=== PATIENT | male | born 1960 | race American Indian/Alaskan Native ===

== ENCOUNTER 2019-06-02 14:13 | Outpatient (CLI) | payer BC ==
[2019-06-02] MEDS ORDERED: LISI-600 PO (17:10)
== END 2019-06-02 23:59 | disposition home or self-care (01) ==
LOC: CARD DIAG 14:13
PROVIDERS: ATTEND Family Medicine
DX: I08.0 Rheumatic disorders of both mitral and aortic valves (principal)
CPT/HCPCS: 93306

== ENCOUNTER 2019-06-02 15:20 | Inpatient (IN) | payer BC ==
[~2019-06-02] VITALS: Ht 172.7 cm; Wt 114.1 kg
[~2019-06-02 15:20] MED LIST: LIDOcaine 2% (20 mg/ml) 5ml cardiac syringe ONE; albumin (human) 25% 100 ML IV solution IV ONE; aminocaproic acid 250 MG/1 ML inj. ONE; calcium chloride 100 MG/1 ML inj IV ONE; heparin 10,000 units/1 ML INJ ONE; magnesium sulf 1 GM/2 ML ONE; methylPREDNISolone sod. succ. 500mg inj ONE; papaverine 30 mg/ml 2ml inj. ONE; phenylephrine 10mg/ml inj. ONE; potassium Cl 2 mEq/ml inj IV ONE; sodium bicarbonate (8.4%) 1 mEq/ml syringe ONE
[2019-06-02] MEDS ORDERED: aspirin 81mg tab.chew PO ONE (16:05)
[2019-06-02 16:16] LABS: BASOPHILS # (AUTO) 0.1 X10'3 (0-0.2); BASOPHILS % (AUTO) 0.7 % (0-1); EOSINOPHILS % (AUTO) 0.6 % (0-6); HEMATOCRIT 42.5 % (42.0-52.0); HEMOGLOBIN 14.1 g/dl (14.0-17.9); LYMPHOCYTES # (AUTO) 1.1 X10'3 (1.1-4.8); LYMPHOCYTES % (AUTO) 14.8 % (21-51); MEAN CORPUSCULAR HEMOGLOBIN 27.5 PG (27.0-31.0); MEAN CORPUSCULAR HGB CONC 33.2 g/dL (33.0-36.5); MEAN CORPUSCULAR VOLUME 82.7 FL (78-98); MEAN PLATELET VOLUME 8.2 FL (7.4-10.4); MONOCYTES # (AUTO) 0.2 X10'3 (0-0.9); MONOCYTES % (AUTO) 2.4 % (2-12); NEUTROPHILS # (AUTO) 6.1 X10'3 (1.8-7.7); NEUTROPHILS % (AUTO) 81.5 % (42-75); PLATELET COUNT 274 X10'3 (140-440); RED BLOOD COUNT 5.14 X10'6 (4.70-6.10); RED CELL DISTRIBUTION WIDTH 17.7 % (11.5-14.5); WHITE BLOOD COUNT 7.5 X10'3 (4.5-11.0)
[2019-06-02 16:29] LABS: ALANINE AMINOTRANSFERASE 57 U/L (12-78); ALBUMIN 3.9 G/DL (3.4-5.0); ALKALINE PHOSPHATASE 107 IU/L (46-116); ANION GAP 14 (8-16); ASPARTATE AMINO TRANSFERASE 24 U/L (10-37); BILIRUBIN,TOTAL 1.1 MG/DL (0.1-1.0); BLOOD UREA NITROGEN 23 MG/DL (7-18); BUN/CREATININE RATIO 20.2 (5.4-32.0); CALCIUM 9.5 MG/DL (8.5-10.1); CHLORIDE 106 MMOL/L (99-107); CREATININE 1.14 MG/DL (0.60-1.10); GLUCOSE 144 MG/DL (70-104); POTASSIUM 4.2 MMOL/L (3.5-5.1); SODIUM 143 MMOL/L (135-145); TOTAL CARBON DIOXIDE 22.8 MMOL/L (24-32); TOTAL PROTEIN 7.8 G/DL (6.4-8.2); eGFR 66 ML/MIN
[2019-06-02] MEDS ORDERED: LISI-600 PO (17:10)
[2019-06-02] MEDS ORDERED: iohexol 350MG/ML 100ml bottle IV ONE ×2 (17:18→17:48)
[2019-06-02] MEDS ORDERED: labetalol 20mg/4ml (5mg/ml) syringe IV ONE (17:30)
[2019-06-02] MEDS ORDERED: acetaminophen 325mg tablet PO PRN (18:30)
[2019-06-02] MEDS ORDERED: magnesium hydroxide 30ml (MOM) UD suspension PO PRN (18:30)
--- NOTE | 2019-06-02 19:45 | NUR ---
Patient in room . I have received report from Mirtha MANNING (ED) and had the opportunity to ask questions and assume patient care. Patient arrived to the telemetry floor by wheelchair with all his personal belongings on him. He is fully ambulatory and placed himself into bed. VS taken, telemetry placed. Pt. was oriented to room and call light. He is stable and comfortable. Will continue to monitor closely
[2019-06-02 22:00] VITALS: BP 143/67
[2019-06-02] MEDS: mag hydrox/Alum hydrox/simeth 30ml oral suspension PO PRN (22:41)
[2019-06-02] MEDS: carVEDilol 3.125mg tablet PO SCH (22:42)
[2019-06-02] MEDS: furosemide 20 MG/2 ML vial IV SCH (22:43)
[2019-06-03 02:00] VITALS: BP 142/76
[2019-06-03 05:36] LABS: BASOPHILS % (AUTO) 0.4 % (0-1); EOSINOPHILS % (AUTO) 0.3 % (0-6); HEMOGLOBIN 12.2 g/dl (14.0-17.9); LYMPHOCYTES # (AUTO) 0.8 X10'3 (1.1-4.8); LYMPHOCYTES % (AUTO) 13.7 % (21-51); MEAN CORPUSCULAR HEMOGLOBIN 27.3 PG (27.0-31.0); MEAN CORPUSCULAR HGB CONC 33.1 g/dL (33.0-36.5); MEAN CORPUSCULAR VOLUME 82.7 FL (78-98); MONOCYTES # (AUTO) 0.2 X10'3 (0-0.9); MONOCYTES % (AUTO) 4.2 % (2-12); NEUTROPHILS # (AUTO) 4.5 X10'3 (1.8-7.7); NEUTROPHILS % (AUTO) 81.4 % (42-75); PLATELET COUNT 217 X10'3 (140-440); RED BLOOD COUNT 4.47 X10'6 (4.70-6.10); WHITE BLOOD COUNT 5.6 X10'3 (4.5-11.0)
[2019-06-03 06:00] VITALS: BP 114/59
[2019-06-03 06:19] LABS: ALBUMIN 3.2 G/DL (3.4-5.0); ANION GAP 10 (8-16); BLOOD UREA NITROGEN 24 MG/DL (7-18); BUN/CREATININE RATIO 18.6 (5.4-32.0); CALCIUM 8.7 MG/DL (8.5-10.1); CHLORIDE 109 MMOL/L (99-107); CREATININE 1.29 MG/DL (0.60-1.10); GLUCOSE 138 MG/DL (70-104); POTASSIUM 4.8 MMOL/L (3.5-5.1); SODIUM 144 MMOL/L (135-145); TOTAL CARBON DIOXIDE 24.7 MMOL/L (24-32); eGFR 57 ML/MIN
--- NOTE | 2019-06-03 06:23 | NUR ---
Problems reprioritized. Patient report given, questions answered & plan of care reviewed with Nita MANNING.
--- NOTE | 2019-06-03 06:24 | NUR ---
Patient in room PCU 3023. I have received report from NIGEL Dawson and had the opportunity to ask questions and assume patient care.
[2019-06-03] MEDS: mag hydrox/Alum hydrox/simeth 30ml oral suspension PO PRN (07:20)
[2019-06-03] MEDS: carVEDilol 3.125mg tablet PO SCH ×2 (07:20→20:59)
[2019-06-03] MEDS: furosemide 20 MG/2 ML vial IV SCH ×2 (07:20→20:58)
[2019-06-03] MEDS: CefTRIAXone 2gm/D5W 50ml 50 ML IV SCH (10:52)
[2019-06-03 11:00] VITALS: BP 150/67
[2019-06-03] MEDS: VANCOmycin 1250MG/NS 250ml Bag 250 ML IV SCH ×2 (11:22→20:58)
[2019-06-03 15:00] VITALS: BP 142/64
--- NOTE | 2019-06-03 18:26 | NUR ---
Patient in room U 3023. Report given to NIGEL Martinez
--- NOTE | 2019-06-03 18:30 | NUR ---
Patient in room PCU 3023. I have received report from Nita MANNING and had the opportunity to ask questions and assume patient care.
[2019-06-03 19:00] VITALS: BP 141/60
[2019-06-03] MEDS: lactobacillus rhamnosus 10,000 MMU CELLS/CAPSULE PO SCH (20:58)
[2019-06-03 23:00] VITALS: BP 134/59
[2019-06-04] VITALS (7 sets, daily range): BP systolic 112–151; BP diastolic 44–83
--- NOTE | 2019-06-04 06:48 | NUR ---
Problems reprioritized. Patient report given, questions answered & plan of care reviewed with Hilaria MANNING and Cris [employer] Student.
--- NOTE | 2019-06-04 07:05 | NUR ---
Patient in room PCU 3023. I have received report from NIGEL LIN and had the opportunity to ask questions and assume patient care.
[2019-06-04] MEDS: carVEDilol 3.125mg tablet PO SCH ×2 (07:39→22:10)
[2019-06-04] MEDS: CefTRIAXone 2gm/D5W 50ml 50 ML IV SCH (07:39)
[2019-06-04] MEDS: lactobacillus rhamnosus 10,000 MMU CELLS/CAPSULE PO SCH ×2 (07:39→22:10)
[2019-06-04] MEDS: furosemide 20 MG/2 ML vial IV SCH (07:39)
[2019-06-04 08:13] LABS: ANION GAP 10 (8-16); BLOOD UREA NITROGEN 27 MG/DL (7-18); BUN/CREATININE RATIO 19.4 (5.4-32.0); CALCIUM 8.7 MG/DL (8.5-10.1); CHLORIDE 108 MMOL/L (99-107); CREATININE 1.39 MG/DL (0.60-1.10); GLUCOSE 149 MG/DL (70-104); POTASSIUM 4.5 MMOL/L (3.5-5.1); SODIUM 142 MMOL/L (135-145); TOTAL CARBON DIOXIDE 24.5 MMOL/L (24-32); eGFR 52 ML/MIN
[2019-06-04 08:15] LABS: BASOPHILS % (AUTO) 0.7 % (0-1); EOSINOPHILS # (AUTO) 0.1 X10'3 (0-0.9); EOSINOPHILS % (AUTO) 1.3 % (0-6); HEMATOCRIT 38.6 % (42.0-52.0); HEMOGLOBIN 12.9 g/dl (14.0-17.9); LYMPHOCYTES # (AUTO) 0.7 X10'3 (1.1-4.8); LYMPHOCYTES % (AUTO) 13.9 % (21-51); MEAN CORPUSCULAR HEMOGLOBIN 27.3 PG (27.0-31.0); MEAN CORPUSCULAR HGB CONC 33.4 g/dL (33.0-36.5); MEAN CORPUSCULAR VOLUME 81.7 FL (78-98); MEAN PLATELET VOLUME 8.4 FL (7.4-10.4); MONOCYTES # (AUTO) 0.2 X10'3 (0-0.9); MONOCYTES % (AUTO) 4.4 % (2-12); NEUTROPHILS % (AUTO) 79.7 % (42-75); PLATELET COUNT 186 X10'3 (140-440); RED BLOOD COUNT 4.72 X10'6 (4.70-6.10); RED CELL DISTRIBUTION WIDTH 17.2 % (11.5-14.5)
[2019-06-04] MEDS: VANCOmycin 1250MG/NS 250ml Bag 250 ML IV SCH ×2 (10:20→22:59)
[2019-06-04] MEDS ORDERED: aspirin 81mg tablet.DR PO ONE (13:25)
--- NOTE | 2019-06-04 18:00 | NUR ---
Patient in room PCU 3023. I have received report from NIGEL Manrique and had the opportunity to ask questions and assume patient care.
--- NOTE | 2019-06-04 18:30 | NUR ---
Problems reprioritized. Patient report given, questions answered & plan of care reviewed with NIGEL DE LUNA.
--- NOTE | 2019-06-04 18:42 | NUR ---
Problems reprioritized. Patient report given, questions answered & plan of care reviewed with NIGEL NEGRETE.
--- NOTE | 2019-06-04 18:45 | NUR ---
Student Medication Administration: For this medication-pass time frame, all medication were reviewed, dispensed, administered and documented per hospital policy by JANY.
--- NOTE | 2019-06-04 18:45 | NUR ---
Student documentation: I have reviewed and agree with all interventions, assessments performed and documented by JANY.
[2019-06-04] MEDS ORDERED: VANCOMYCIN LEVEL IV ONE (20:30)
[2019-06-05] VITALS (16 sets, daily range): BP systolic 106–136; BP diastolic 47–72
[2019-06-05 06:15] LABS: BASOPHILS % (AUTO) 0.8 % (0-1); EOSINOPHILS # (AUTO) 0.1 X10'3 (0-0.9); EOSINOPHILS % (AUTO) 1.4 % (0-6); HEMATOCRIT 39.2 % (42.0-52.0); HEMOGLOBIN 13.1 g/dl (14.0-17.9); MEAN CORPUSCULAR HEMOGLOBIN 27.7 PG (27.0-31.0); MEAN CORPUSCULAR HGB CONC 33.5 g/dL (33.0-36.5); MEAN CORPUSCULAR VOLUME 82.7 FL (78-98); MEAN PLATELET VOLUME 8.5 FL (7.4-10.4); MONOCYTES # (AUTO) 0.2 X10'3 (0-0.9); MONOCYTES % (AUTO) 4.1 % (2-12); NEUTROPHILS % (AUTO) 74.7 % (42-75); PLATELET COUNT 206 X10'3 (140-440); RED BLOOD COUNT 4.74 X10'6 (4.70-6.10); RED CELL DISTRIBUTION WIDTH 17.4 % (11.5-14.5); WHITE BLOOD COUNT 5.4 X10'3 (4.5-11.0)
[2019-06-05 06:34] LABS: ALBUMIN 3.1 G/DL (3.4-5.0); ANION GAP 8 (8-16); BLOOD UREA NITROGEN 31 MG/DL (7-18); BUN/CREATININE RATIO 24.8 (5.4-32.0); CALCIUM 8.3 MG/DL (8.5-10.1); CHLORIDE 107 MMOL/L (99-107); CREATININE 1.25 MG/DL (0.60-1.10); GLUCOSE 174 MG/DL (70-104); POTASSIUM 4.1 MMOL/L (3.5-5.1); SODIUM 142 MMOL/L (135-145); TOTAL CARBON DIOXIDE 26.9 MMOL/L (24-32); eGFR 59 ML/MIN
--- NOTE | 2019-06-05 06:49 | NUR ---
Problems reprioritized. Patient report given, questions answered & plan of care reviewed with NIGEL Veloz.
--- NOTE | 2019-06-05 06:49 | NUR ---
Patient in room PCU 3023. I have received report from Renay MANNING and had the opportunity to ask questions and assume patient care. Patient asleep in bed. No complaints at this time. Will continue to monitor.
[2019-06-05] MEDS: normal saline 1000ml 1,000 ML IV SCH ×2 (07:49→14:56)
[2019-06-05] MEDS: carVEDilol 3.125mg tablet PO SCH ×2 (07:49→20:27)
[2019-06-05] MEDS: CefTRIAXone 2gm/D5W 50ml 50 ML IV SCH (07:49)
[2019-06-05] MEDS: lactobacillus rhamnosus 10,000 MMU CELLS/CAPSULE PO SCH ×2 (07:49→20:27)
[2019-06-05] MEDS ORDERED: diphenhydrAMINE 25mg capsule PO ONE ×2 (08:00→10:10)
[2019-06-05] MEDS ORDERED: LORazepam 1 MG tablet PO ONE ×2 (08:00→10:10)
[2019-06-05] MEDS: VANCOmycin 1250MG/NS 250ml Bag 250 ML IV SCH ×2 (09:50→20:35)
[2019-06-05] MEDS ORDERED: midazolam 2 mg/2 ml injection ONE ×2 (11:52→12:44)
[2019-06-05] MEDS ORDERED: LIDOcaine 1% (10mg/ml)w/preservative injection 20ml MDV ONE (11:53)
[2019-06-05] MEDS ORDERED: iohexol 350 MG/ML 50ML vial IV ONE ×2 (11:53→12:43)
[2019-06-05] MEDS ORDERED: iohexol 350MG/ML 100ml bottle IV ONE (11:53)
[2019-06-05] MEDS ORDERED: fentaNYL/PF 50MCG/1 ML 2ML syringe ONE (11:53)
[2019-06-05 13:11] LABS: ISTAT HGB ART 12.2 g/dl (14.0-18.0); ISTAT Hct ART 36 %PCV (42-52); ISTAT O2 SATURATION ARTERIAL 97 % (95-98); ISTAT SOURCE ART
[2019-06-05 13:11] LABS: ISTAT Hct MIX 36 %PCV (42-52); ISTAT O2 SATURATION MIX VENOUS 49 % (60-80); ISTAT SOURCE MIX
[2019-06-05] MEDS ORDERED: proCHLORperazine 10 MG/2 ml inj IV PRN (13:55)
[2019-06-05] MEDS ORDERED: OXAZEpam 15mg capsule PO PRN (13:55)
[2019-06-05] MEDS ORDERED: nitroGLYCERIN 0.4mg SUBLingual tab SL PRN (13:55)
[2019-06-05] MEDS ORDERED: magnesium 2GM in 50ml NS 50 ML IV PRN (17:20)
[2019-06-05] MEDS ORDERED: MESSAGE TO NURSING PO ONE ×4 (17:20)
[2019-06-05] MEDS ORDERED: potassium Cl 20 mEq SR tablet PO PRN (17:20)
[2019-06-05] MEDS ORDERED: magnesium 4gm in 100ml NS 100 ML IV PRN (17:20)
[2019-06-05] MEDS ORDERED: insulin glargine (Lantus) pen - multi-dose SQ PRN (17:20)
[2019-06-05] MEDS ORDERED: dextrose 50%-water 50ml dispensing syringe IV PRN (17:20)
[2019-06-05] MEDS ORDERED: potassium Cl 20mEq/100mL bag 100 ML IV PRN (17:20)
[2019-06-05] MEDS: aspirin 81mg tablet.DR PO SCH (17:43)
[2019-06-05 18:19] LABS: PARTIAL THROMBOPLASTIN TIME 29 SECONDS (22-32)
--- NOTE | 2019-06-05 18:22 | NUR ---
Problems reprioritized. Patient report given, questions answered & plan of care reviewed with Renay MANNING.
--- NOTE | 2019-06-05 18:44 | NUR ---
Problems reprioritized. Patient report given, questions answered & plan of care reviewed with Renay MANNING. Patient stable at tranfer of care.
--- NOTE | 2019-06-05 18:44 | NUR ---
Patient in room PCU 3023. I have received report from NIGEL Veloz and had the opportunity to ask questions and assume patient care.
[2019-06-05] MEDS: mag hydrox/Alum hydrox/simeth 30ml oral suspension PO PRN (20:27)
[2019-06-05] MEDS: mupirocin 2% nasal ointment 1gm UD NS SCH (20:28)
[2019-06-06] VITALS (7 sets, daily range): BP systolic 118–133; BP diastolic 44–61
[2019-06-06] MEDS: normal saline 1000ml 1,000 ML IV SCH ×2 (01:55→10:10)
[2019-06-06 05:57] LABS: BASOPHILS % (AUTO) 0.6 % (0-1); EOSINOPHILS # (AUTO) 0.1 X10'3 (0-0.9); EOSINOPHILS % (AUTO) 0.9 % (0-6); HEMOGLOBIN 13.4 g/dl (14.0-17.9); LYMPHOCYTES # (AUTO) 1.4 X10'3 (1.1-4.8); LYMPHOCYTES % (AUTO) 22.4 % (21-51); MEAN CORPUSCULAR HEMOGLOBIN 27.3 PG (27.0-31.0); MEAN CORPUSCULAR HGB CONC 33.5 g/dL (33.0-36.5); MEAN CORPUSCULAR VOLUME 81.4 FL (78-98); MEAN PLATELET VOLUME 8.4 FL (7.4-10.4); MONOCYTES # (AUTO) 0.3 X10'3 (0-0.9); MONOCYTES % (AUTO) 4.6 % (2-12); NEUTROPHILS # (AUTO) 4.6 X10'3 (1.8-7.7); NEUTROPHILS % (AUTO) 71.5 % (42-75); PLATELET COUNT 216 X10'3 (140-440); RED BLOOD COUNT 4.91 X10'6 (4.70-6.10); RED CELL DISTRIBUTION WIDTH 17.8 % (11.5-14.5); WHITE BLOOD COUNT 6.4 X10'3 (4.5-11.0)
--- NOTE | 2019-06-06 06:05 | NUR ---
Patient in room MED 307. I have received report from NIGEL Parry and had the opportunity to ask questions and assume patient care.
[2019-06-06 06:15] LABS: ALBUMIN 3.1 G/DL (3.4-5.0); ANION GAP 9 (8-16); BLOOD UREA NITROGEN 31 MG/DL (7-18); BUN/CREATININE RATIO 23.1 (5.4-32.0); CALCIUM 8.1 MG/DL (8.5-10.1); CHLORIDE 108 MMOL/L (99-107); CREATININE 1.34 MG/DL (0.60-1.10); GLUCOSE 169 MG/DL (70-104); POTASSIUM 4.2 MMOL/L (3.5-5.1); SODIUM 140 MMOL/L (135-145); TOTAL CARBON DIOXIDE 22.7 MMOL/L (24-32); eGFR 54 ML/MIN
[2019-06-06] MEDS: mupirocin 2% nasal ointment 1gm UD NS SCH ×2 (08:00→19:52)
[2019-06-06] MEDS: CefTRIAXone 2gm/D5W 50ml 50 ML IV SCH (08:05)
[2019-06-06] MEDS: carVEDilol 3.125mg tablet PO SCH ×2 (08:06→19:52)
[2019-06-06] MEDS: lactobacillus rhamnosus 10,000 MMU CELLS/CAPSULE PO SCH ×2 (08:06→19:52)
[2019-06-06] MEDS: aspirin 81mg tablet.DR PO SCH (08:06)
[2019-06-06] MEDS ORDERED: ringers solution, lacted 1,000 ML IV ONE (09:14)
[2019-06-06] MEDS: VANCOmycin 1250MG/NS 250ml Bag 250 ML IV SCH ×2 (09:49→21:33)
[2019-06-06] MEDS: pantoprazole 40mg Tablet.DR PO SCH (09:49)
[2019-06-06] MEDS ORDERED: MESSAGE TO NURSING PO ONE (10:00)
[2019-06-06] MEDS: ondansetron/PF 4mg/2ml inj IV PRN ×2 (14:21→19:51)
[2019-06-06 14:55] LABS: ABG BASE EXCESS -7.4 mmol/L (-2.0-3.0); ABG OXYGEN SATURATION 97.3 % (95-98); ABG PCO2 (T) 23.9 mmHg (35.0-45.0); ABG PH (T) 7.417 (7.350-7.450); ABG PO2 (T) 97.9 mmHg (83-108); ALLEN'S TEST Positive; FCOHb 0.8 % (0.5-1.5); FMetHb 0.3 % (0.3-1.12); FO2Hb 96.2 % (94-100); RESPIRATORY RATE (OBSERVED) 18 b/min; TOTAL HEMOGLOBIN 14.5 G/dl (14.0-17.9)
--- NOTE | 2019-06-06 15:26 | NUR ---
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 HE IS HAVING A CABG TOMORROW AND MENTIONED A HOTEL> CANDIDO, SANTO JOHN [id number]"
--- NOTE | 2019-06-06 18:00 | NUR ---
Patient in room MED 307. I have received report from Gisel/Cristel MANNING's and had the opportunity to ask questions and assume patient care.
--- NOTE | 2019-06-06 18:36 | NUR ---
Problems reprioritized. Patient report given, questions answered & plan of care reviewed with NIGEL Lea.
[2019-06-07] VITALS (16 sets, daily range): BP systolic 98–135; BP diastolic 52–100
[2019-06-07 04:02] LABS: ALANINE AMINOTRANSFERASE 74 U/L (12-78); ALBUMIN 3.1 G/DL (3.4-5.0); ALKALINE PHOSPHATASE 77 IU/L (46-116); ANION GAP 12 (8-16); ASPARTATE AMINO TRANSFERASE 72 U/L (10-37); BLOOD UREA NITROGEN 37 MG/DL (7-18); BUN/CREATININE RATIO 25.2 (5.4-32.0); CALCIUM 8.5 MG/DL (8.5-10.1); CHLORIDE 106 MMOL/L (99-107); CREATININE 1.47 MG/DL (0.60-1.10); GLUCOSE 139 MG/DL (70-104); SODIUM 138 MMOL/L (135-145); TOTAL CARBON DIOXIDE 20.1 MMOL/L (24-32); TOTAL PROTEIN 6.1 G/DL (6.4-8.2); eGFR 49 ML/MIN
[2019-06-07 04:05] LABS: POTASSIUM 4.9 MMOL/L (3.5-5.1)
[2019-06-07 05:03] LABS: BASOPHILS % (AUTO) 0.4 % (0-1); EOSINOPHILS % (AUTO) 0.4 % (0-6); HEMATOCRIT 38.1 % (42.0-52.0); HEMOGLOBIN 12.7 g/dl (14.0-17.9); LYMPHOCYTES # (AUTO) 1.3 X10'3 (1.1-4.8); LYMPHOCYTES % (AUTO) 18.9 % (21-51); MEAN CORPUSCULAR HEMOGLOBIN 27.5 PG (27.0-31.0); MEAN CORPUSCULAR HGB CONC 33.3 g/dL (33.0-36.5); MEAN CORPUSCULAR VOLUME 82.4 FL (78-98); MEAN PLATELET VOLUME 8.5 FL (7.4-10.4); MONOCYTES # (AUTO) 0.2 X10'3 (0-0.9); MONOCYTES % (AUTO) 3.7 % (2-12); NEUTROPHILS # (AUTO) 5.1 X10'3 (1.8-7.7); NEUTROPHILS % (AUTO) 76.6 % (42-75); PLATELET COUNT 191 X10'3 (140-440); RED BLOOD COUNT 4.62 X10'6 (4.70-6.10); RED CELL DISTRIBUTION WIDTH 17.5 % (11.5-14.5); WHITE BLOOD COUNT 6.7 X10'3 (4.5-11.0)
[2019-06-07] MEDS ORDERED: ROPIVAcaine 0.5% (5mg/ml) 30ml vial ONE (05:08)
[2019-06-07] MEDS ORDERED: cefazolin/dext.iso 2gm/50ml 50 ML IV ONE (05:30)
[2019-06-07] MEDS ORDERED: vancomycin/NS 1 GM ADD-VANTAGE 250 ML IV ONE (05:30)
[2019-06-07] MEDS ORDERED: MALTODEXTRIN/FRUCTOSE 0.68 KCAL/ML LIQUID 296ML BOTTLE PO ONE (05:30)
[2019-06-07] MEDS ORDERED: gabapentin 400mg capsule PO ONE (05:30)
[2019-06-07 05:49] LABS: MAGNESIUM 2.2 MG/DL (1.5-2.4)
[2019-06-07] MEDS: mupirocin 2% nasal ointment 1gm UD NS SCH ×2 (05:53→19:59)
[2019-06-07] MEDS ORDERED: LORazepam 2 mg/ml vial IV ONE (06:00)
[2019-06-07] MEDS ORDERED: famotidine 20mg tablet PO ONE (06:00)
--- NOTE | 2019-06-07 06:43 | NUR ---
Problems reprioritized. Patient report given, questions answered & plan of care reviewed with Hannah/Leslye RN's.
[2019-06-07] MEDS: pantoprazole 40mg Tablet.DR PO SCH (07:30)
[2019-06-07] MEDS ORDERED: SUFENTANIL CITRATE 50 MCG/ML 2ml ampule IV ONE (07:42)
[2019-06-07] MEDS ORDERED: MIDAZolam 5mg/5ml vial ONE (07:42)
[2019-06-07] MEDS ORDERED: etomidate 2mg/ml inj. ONE (07:43)
[2019-06-07] MEDS ORDERED: pancuronium br 1mg/ml inj IV ONE (07:43)
[2019-06-07] MEDS: carVEDilol 3.125mg tablet PO SCH (07:44)
[2019-06-07] MEDS: aspirin 81mg tablet.DR PO SCH (08:00)
[2019-06-07] MEDS: lactobacillus rhamnosus 10,000 MMU CELLS/CAPSULE PO SCH (08:00)
[2019-06-07] MEDS ORDERED: aminocaproic acid 250 MG/1 ML inj. ONE (08:05)
[2019-06-07] MEDS ORDERED: calcium chloride 100 MG/1 ML inj IV ONE (08:05)
[2019-06-07] MEDS ORDERED: sevoflurane 250ml liquid IH ONE (08:05)
[2019-06-07] MEDS ORDERED: epiNEPHrine 0.1mg/ml 10ml syringe ONE (08:05)
[2019-06-07] MEDS ORDERED: DOPamine/D5W 400mg/250ml bag IV ONE (08:05)
[2019-06-07] MEDS ORDERED: protamine sulf. 10mg/ml inj. IV ONE (08:05)
[2019-06-07] MEDS ORDERED: nitroGLYCERIN in D5W 50mg/250ml (Tridil) infusion IV ONE (08:05)
[2019-06-07] MEDS: VANCOmycin 1250MG/NS 250ml Bag 250 ML IV SCH (08:06)
--- NOTE | 2019-06-07 08:06 | NUR ---
PRE OP COMPLETED, CONSENT SIGNED , AND ATIVAN GIVEN. PATIENT TRANSFERRED TO OR AT THIS TIME. Addendum: 06/07/19 at 0809 by Kathy Mota RN Amended: Links added.
[2019-06-07 08:26] LABS: ABG BASE EXCESS -8.1 mmol/L (-2.0-3.0); ABG HCO3 17.5 mmol/L (22.0-26.0); ABG OXYGEN SATURATION 99.8 % (95-98); ABG PCO2 36.2 mmHg (35.0-45.0); ABG PH 7.301 (7.350-7.450); ABG PO2 375.9 mmHg (60.0-100.0); CL (ABG) 102 mmol/L (99-107); FCOHb 0.8 % (0.5-1.5); FMetHb 0.4 % (0.3-1.12); FO2Hb 98.6 % (94-100); GLUCOSE (ABG) 251 mg/dl (70-104); IONIZED CA (ABG) 1.18 mmol/L (1.03-1.32); K (ABG) 4.9 mmol/L (3.3-5.1); NA (ABG) 133 mmol/L (135-145); TOTAL HEMOGLOBIN 13.3 G/dl (14.0-17.9)
[2019-06-07] MEDS ORDERED: albumin (Human) 5% 250ml 250 ML IV ONE ×4 (08:44→12:59)
[2019-06-07] MEDS ORDERED: phenylephrine 10mg/ml inj. ONE (08:51)
[2019-06-07] MEDS ORDERED: heparin 10,000 units/1 ML INJ IR ONE (09:23)
[2019-06-07] MEDS ORDERED: papaverine 30 mg/ml 2ml inj. IA ONE (09:24)
[2019-06-07 09:36] LABS: ABG BASE EXCESS VENOUS -4.7 mmol/L; ABG HCO3 VENOUS 22.9 mmol/L; ABG PCO2 VENOUS 53.7 mmHg; ABG PO2 VENOUS 27.8 mmHg; CL (ABG) 103 mmol/L (99-107); FCOHb VENOUS 1.2 %; FHHb VENOUS 64.1 %; FMetHb VENOUS 0.1 %; FO2Hb VENOUS 34.6 %; GLUCOSE (ABG) 235 mg/dl (70-104); IONIZED CA (ABG) 1.14 mmol/L (1.03-1.32); K (ABG) 4.9 mmol/L (3.3-5.1); NA (ABG) 133 mmol/L (135-145); TOTAL HEMOGLOBIN 12.2 G/dl (14.0-17.9)
[2019-06-07 10:15] LABS: ABG BASE EXCESS -5.7 mmol/L (-2.0-3.0); ABG HCO3 20.1 mmol/L (22.0-26.0); ABG OXYGEN SATURATION 99.7 % (95-98); ABG PCO2 40.7 mmHg (35.0-45.0); ABG PH 7.311 (7.350-7.450); ABG PO2 404.2 mmHg (60.0-100.0); CL (ABG) 103 mmol/L (99-107); FCOHb 0.6 % (0.5-1.5); FMetHb 0.5 % (0.3-1.12); FO2Hb 98.6 % (94-100); GLUCOSE (ABG) 189 mg/dl (70-104); IONIZED CA (ABG) 1.07 mmol/L (1.03-1.32); K (ABG) 4.8 mmol/L (3.3-5.1); NA (ABG) 132 mmol/L (135-145); TOTAL HEMOGLOBIN 9.4 G/dl (14.0-17.9)
[2019-06-07 10:20] LABS: ABG BASE EXCESS VENOUS -6.7 mmol/L; ABG HCO3 VENOUS 19.8 mmol/L; ABG PCO2 VENOUS 43.8 mmHg; ABG PO2 VENOUS 62.8 mmHg; CL (ABG) 102 mmol/L (99-107); FCOHb VENOUS 1.1 %; FHHb VENOUS 13.9 %; FMetHb VENOUS 0.6 %; FO2Hb VENOUS 84.4 %; GLUCOSE (ABG) 182 mg/dl (70-104); IONIZED CA (ABG) 1.08 mmol/L (1.03-1.32); K (ABG) 4.7 mmol/L (3.3-5.1); NA (ABG) 133 mmol/L (135-145); TOTAL HEMOGLOBIN 9.3 G/dl (14.0-17.9)
[2019-06-07] MEDS ORDERED: ringers solution, lacted 1,000 ML IV ONE (10:35)
[2019-06-07 10:41] LABS: ABG HCO3 22.2 mmol/L (22.0-26.0); ABG OXYGEN SATURATION 99.6 % (95-98); ABG PCO2 44.9 mmHg (35.0-45.0); ABG PH 7.311 (7.350-7.450); ABG PO2 351.5 mmHg (60.0-100.0); CL (ABG) 102 mmol/L (99-107); FCOHb 0.5 % (0.5-1.5); FMetHb 0.3 % (0.3-1.12); FO2Hb 98.8 % (94-100); GLUCOSE (ABG) 176 mg/dl (70-104); IONIZED CA (ABG) 1.08 mmol/L (1.03-1.32); K (ABG) 4.6 mmol/L (3.3-5.1); NA (ABG) 135 mmol/L (135-145); TOTAL HEMOGLOBIN 10.1 G/dl (14.0-17.9)
[2019-06-07 11:00] LABS: ABG BASE EXCESS -0.8 mmol/L (-2.0-3.0); ABG HCO3 23.7 mmol/L (22.0-26.0); ABG OXYGEN SATURATION 99.5 % (95-98); ABG PCO2 38.4 mmHg (35.0-45.0); ABG PH 7.408 (7.350-7.450); ABG PO2 330.7 mmHg (60.0-100.0); CL (ABG) 100 mmol/L (99-107); FCOHb 0.8 % (0.5-1.5); FMetHb 0.4 % (0.3-1.12); FO2Hb 98.3 % (94-100); GLUCOSE (ABG) 155 mg/dl (70-104); IONIZED CA (ABG) 1.22 mmol/L (1.03-1.32); K (ABG) 4.7 mmol/L (3.3-5.1); NA (ABG) 134 mmol/L (135-145); TOTAL HEMOGLOBIN 10.4 G/dl (14.0-17.9)
[2019-06-07] MEDS ORDERED: acetaminophen 1,000mg/100ml IV 100 ML IV ONE (11:03)
[2019-06-07 11:40] LABS: ABG BASE EXCESS -2.7 mmol/L (-2.0-3.0); ABG OXYGEN SATURATION 99.1 % (95-98); ABG PCO2 32.6 mmHg (35.0-45.0); ABG PH 7.427 (7.350-7.450); ABG PO2 260.2 mmHg (60.0-100.0); CL (ABG) 102 mmol/L (99-107); FCOHb 0.2 % (0.5-1.5); FMetHb 0.7 % (0.3-1.12); FO2Hb 98.2 % (94-100); GLUCOSE (ABG) 125 mg/dl (70-104); IONIZED CA (ABG) 1.18 mmol/L (1.03-1.32); K (ABG) 4.9 mmol/L (3.3-5.1); NA (ABG) 135 mmol/L (135-145); TOTAL HEMOGLOBIN 10.6 G/dl (14.0-17.9)
[2019-06-07 12:15] LABS: ABG BASE EXCESS VENOUS -3.9 mmol/L; ABG PCO2 VENOUS 43.4 mmHg; ABG PO2 VENOUS 41.2 mmHg; CL (ABG) 103 mmol/L (99-107); FHHb VENOUS 32.4 %; FMetHb VENOUS 0.9 %; FO2Hb VENOUS 65.7 %; GLUCOSE (ABG) 104 mg/dl (70-104); K (ABG) 4.4 mmol/L (3.3-5.1); NA (ABG) 136 mmol/L (135-145); TOTAL HEMOGLOBIN 10.5 G/dl (14.0-17.9)
--- NOTE | 2019-06-07 12:48 | NUR ---
Initial: Pt admit w/ SOB found to have severe aortic regurgitation per MD note. NPO to OR today for aortic valve replacement. PO 75-100% meals on admit prior to yesterday 06/06 w/ new abdominal pain/nausea onset. LBM 06/06. Will continue to monitor for high protein needs post-op. Rec: 1. continue heart healthy diet 2. high protein ed s/p AVR 3. wt per rx Addendum: 06/07/19 at [address] Amended: Links added.
--- NOTE | 2019-06-07 12:55 | NUR ---
Received to room 2014, accompanied by MDs and surgical crew. Placed on ventilator, to monitoring and evaluation advisor, arterial line and PA line pressure monitored. Chest tubes to suction at 20 cm. Merida cath to gravity drainage. Dressings are dry and intact. See assessment record. All vasoactive drugs are infusing via central line.
[2019-06-07] MEDS ORDERED: niCARDipine-NS 40mg/200ml IVPB 200 ML IV PRN (12:58)
[2019-06-07] MEDS ORDERED: nitroGLYCERIN-Tridil 50MG/D5W 250 ML IV PRN (12:58)
[2019-06-07] MEDS ORDERED: DOPamine 400mg/D5W 250ml 250 ML IV PRN (12:58)
[2019-06-07] MEDS ORDERED: sodium chloride 0.45% 1,000 ML IV SCH (12:58)
[2019-06-07] MEDS ORDERED: potassium Cl 20 mEq SR tablet PO PRN (13:00)
[2019-06-07] MEDS ORDERED: HYDROcodone/acetaminophen 10/325mg tab PO PRN ×2 (13:00)
[2019-06-07] MEDS ORDERED: magnesium 4gm in 100ml NS 100 ML IV PRN (13:00)
[2019-06-07] MEDS ORDERED: acetaminophen 325mg tablet PO PRN (13:00)
[2019-06-07] MEDS ORDERED: dextrose 50%-water 50ml dispensing syringe IV PRN (13:00)
[2019-06-07] MEDS ORDERED: sodium phosphate inj. 30 MMOL in dextrose 5%-water 250 ML IV PRN (13:00)
[2019-06-07] MEDS ORDERED: pantoprazole 40 MG vial IV ONE (13:00)
[2019-06-07] MEDS ORDERED: magnesium 2GM in 50ml NS 50 ML IV PRN (13:00)
[2019-06-07] MEDS ORDERED: metoclopramide 5 mg/ml inj IV PRN (13:00)
[2019-06-07] MEDS ORDERED: normal saline 250ml IV soln 250 ML IV PRN (13:00)
[2019-06-07] MEDS ORDERED: Neutra Phos packet PO PRN (13:00)
[2019-06-07] MEDS ORDERED: sodium phosphate inj. 15 MMOL in dextrose 5%-water 150 ML IV PRN (13:00)
[2019-06-07] MEDS ORDERED: insulin regular, human inj. 100 UNITS in normal saline 100ml IV soln 100 ML IV SCH ×2 (13:00)
[2019-06-07] MEDS ORDERED: magnesium hydroxide 30ml (MOM) UD suspension PO PRN (13:00)
[2019-06-07] MEDS: insulin Lispro (HumaLOG) vial - multi-dose SQ SCH ×2 (13:00→16:44)
[2019-06-07 13:25] LABS: ABG BASE EXCESS -5.3 mmol/L (-2.0-3.0); ABG HCO3 19.9 mmol/L (22.0-26.0); ABG OXYGEN SATURATION 94.7 % (95-98); ABG PCO2 (T) 37.2 mmHg (35.0-45.0); ABG PH (T) 7.345 (7.350-7.450); ABG PO2 (T) 79.8 mmHg (83-108); FCOHb 1.2 % (0.5-1.5); FMetHb 0.3 % (0.3-1.12); FO2Hb 93.3 % (94-100); MINUTE VOLUME 8 L/min; PATIENT TEMPERATURE 36.6; PEEP 5 cm H2O; RESPIRATORY RATE 12 b/min; RESPIRATORY RATE (OBSERVED) 12 b/min; TIDAL VOLUME 700 mL; TOTAL HEMOGLOBIN 12.8 G/dl (14.0-17.9)
[2019-06-07 13:33] LABS: BASOPHILS # (AUTO) 0.1 X10'3 (0-0.2); BASOPHILS % (AUTO) 0.4 % (0-1); EOSINOPHILS % (AUTO) 0.2 % (0-6); HEMATOCRIT 35.6 % (42.0-52.0); HEMOGLOBIN 11.7 g/dl (14.0-17.9); LYMPHOCYTES # (AUTO) 0.9 X10'3 (1.1-4.8); LYMPHOCYTES % (AUTO) 5.7 % (21-51); MEAN CORPUSCULAR HEMOGLOBIN 27.2 PG (27.0-31.0); MEAN CORPUSCULAR HGB CONC 32.8 g/dL (33.0-36.5); MEAN CORPUSCULAR VOLUME 82.8 FL (78-98); MEAN PLATELET VOLUME 8.3 FL (7.4-10.4); MONOCYTES # (AUTO) 0.6 X10'3 (0-0.9); MONOCYTES % (AUTO) 3.8 % (2-12); NEUTROPHILS # (AUTO) 13.7 X10'3 (1.8-7.7); NEUTROPHILS % (AUTO) 89.9 % (42-75); PLATELET COUNT 163 X10'3 (140-440); RED CELL DISTRIBUTION WIDTH 17.4 % (11.5-14.5); WHITE BLOOD COUNT 15.3 X10'3 (4.5-11.0)
[2019-06-07 13:43] LABS: PARTIAL THROMBOPLASTIN TIME 34 SECONDS (22-32)
[2019-06-07 13:47] LABS: ALANINE AMINOTRANSFERASE 54 U/L (12-78); ALBUMIN 3.1 G/DL (3.4-5.0); ALBUMIN/GLOBULIN RATIO 1.4 (1.1-1.5); ALKALINE PHOSPHATASE 56 IU/L (46-116); ANION GAP 9 (8-16); ASPARTATE AMINO TRANSFERASE 61 U/L (10-37); BILIRUBIN,TOTAL 1.2 MG/DL (0.1-1.0); BLOOD UREA NITROGEN 36 MG/DL (7-18); BUN/CREATININE RATIO 22.4 (5.4-32.0); CALCIUM 8.1 MG/DL (8.5-10.1); CHLORIDE 110 MMOL/L (99-107); CREATININE 1.61 MG/DL (0.60-1.10); GLUCOSE 92 MG/DL (70-104); MAGNESIUM 2.5 MG/DL (1.5-2.4); PHOSPHORUS 2.9 MG/DL (2.3-4.5); POTASSIUM 4.2 MMOL/L (3.5-5.1); SODIUM 143 MMOL/L (135-145); TOTAL CARBON DIOXIDE 23.7 MMOL/L (24-32); TOTAL PROTEIN 5.3 G/DL (6.4-8.2); eGFR 44 ML/MIN
[2019-06-07] MEDS: gabapentin 300mg capsule PO SCH ×2 (14:43→19:59)
[2019-06-07] MEDS: albumin (Human) 5% 250ml 250 ML IV PRN ×2 (14:44→17:17)
[2019-06-07 14:51] LABS: ACTIVATED CLOTTING TIME 127 SEC (101-148)
[2019-06-07 14:51] LABS: ACT @ 1.70 U 350 SEC (193-297); ACT @ 2.84 U 511 SEC (260-420); BASELINE ACT 155 SEC (101-148); PATIENT WEIGHT 93.0k KG
[2019-06-07] MEDS: insulin regular, human 100 UNIT in normal saline 100ml IV soln 100 ML IV SCH ×2 (16:08)
[2019-06-07] MEDS: ceFAZolin 1GM/D5W- ADD-VANTAGE 50 ML IV SCH ×2 (16:23→23:33)
[2019-06-07] MEDS: potassium Cl 20mEq/100mL bag 100 ML IV PRN ×2 (16:23→18:07)
[2019-06-07] MEDS ORDERED: epiNEPHrine inj 5 MG, calcium chloride inj. 1,000 MG in normal saline 250ml IV soln 235 ML IV PRN (17:45)
--- NOTE | 2019-06-07 18:29 | NUR ---
Problems reprioritized. Patient report given, questions answered & plan of care reviewed with oncoming shift.
--- NOTE | 2019-06-07 18:31 | NUR ---
1830..Patient in room CICU 2013. I have received report from Shantell MANNING and had the opportunity to ask questions and assume patient care.
[2019-06-07 19:32] LABS: BASOPHILS % (AUTO) 0.2 % (0-1); EOSINOPHILS % (AUTO) 0 % (0-6); HEMATOCRIT 32.5 % (42.0-52.0); HEMOGLOBIN 10.9 g/dl (14.0-17.9); LYMPHOCYTES # (AUTO) 0.3 X10'3 (1.1-4.8); LYMPHOCYTES % (AUTO) 4.2 % (21-51); MEAN CORPUSCULAR HEMOGLOBIN 27.6 PG (27.0-31.0); MEAN CORPUSCULAR HGB CONC 33.4 g/dL (33.0-36.5); MEAN CORPUSCULAR VOLUME 82.5 FL (78-98); MEAN PLATELET VOLUME 8.2 FL (7.4-10.4); MONOCYTES # (AUTO) 0.1 X10'3 (0-0.9); MONOCYTES % (AUTO) 1.9 % (2-12); NEUTROPHILS # (AUTO) 6.7 X10'3 (1.8-7.7); NEUTROPHILS % (AUTO) 93.7 % (42-75); PLATELET COUNT 97 X10'3 (140-440); RED BLOOD COUNT 3.93 X10'6 (4.70-6.10); RED CELL DISTRIBUTION WIDTH 17.3 % (11.5-14.5); WHITE BLOOD COUNT 7.2 X10'3 (4.5-11.0)
[2019-06-07 19:39] LABS: ALBUMIN 3.1 G/DL (3.4-5.0); ANION GAP 8 (8-16); BLOOD UREA NITROGEN 34 MG/DL (7-18); BUN/CREATININE RATIO 23.9 (5.4-32.0); CALCIUM 8.4 MG/DL (8.5-10.1); CHLORIDE 109 MMOL/L (99-107); CREATININE 1.42 MG/DL (0.60-1.10); GLUCOSE 170 MG/DL (70-104); MAGNESIUM 2.2 MG/DL (1.5-2.4); PHOSPHORUS 3.4 MG/DL (2.3-4.5); POTASSIUM 5.3 MMOL/L (3.5-5.1); SODIUM 140 MMOL/L (135-145); TOTAL CARBON DIOXIDE 23.1 MMOL/L (24-32); eGFR 51 ML/MIN
[2019-06-07] MEDS: vancomycin/NS 1 GM ADD-VANTAGE 250 ML IV SCH (19:58)
[2019-06-07] MEDS: morphine 4 MG/ML inj SYRINge IV PRN (19:59)
[2019-06-07] MEDS: docusate sod 100mg capsule PO SCH (19:59)
--- NOTE | 2019-06-07 21:51 | NUR ---
1999..Assessment as noted, wakes easily, moves all extremities, medicated for complaints of pain with morphine with good effect. Will start weaning vent as tolerated.
--- NOTE | 2019-06-07 22:23 | NUR ---
2200..Weaning vent as tolerated, no other changes noted.
--- NOTE | 2019-06-07 23:08 | NUR ---
2300..Continuing to wean vent, no other changes noted.
--- NOTE | 2019-06-07 23:37 | NUR ---
2300..Placed on spontaneous, seems to be tolerating well.
[2019-06-08] VITALS (26 sets, daily range): BP systolic 103–145; BP diastolic 3–90
[2019-06-08 00:26] LABS: ABG BASE EXCESS -2.4 mmol/L (-2.0-3.0); ABG HCO3 21.7 mmol/L (22.0-26.0); ABG OXYGEN SATURATION 94.4 % (95-98); ABG PCO2 (T) 34.9 mmHg (35.0-45.0); ABG PO2 (T) 73.4 mmHg (83-108); FCOHb 0.2 % (0.5-1.5); FMetHb 0.4 % (0.3-1.12); FO2Hb 93.8 % (94-100); MINUTE VOLUME 8 L/min; PATIENT TEMPERATURE 36.7; PEEP 5 cm H2O; TOTAL HEMOGLOBIN 11.9 G/dl (14.0-17.9)
--- NOTE | 2019-06-08 00:31 | NUR ---
0030..Passed weaning parameters, extubated to nasal cannula 4l, no wheezing or stridor. Tolerated well.
[2019-06-08] MEDS: morphine 4 MG/ML inj SYRINge IV PRN ×6 (00:55→22:27)
[2019-06-08 03:17] LABS: BASOPHILS % (AUTO) 0.1 % (0-1); EOSINOPHILS % (AUTO) 0 % (0-6); HEMATOCRIT 32.7 % (42.0-52.0); LYMPHOCYTES # (AUTO) 0.3 X10'3 (1.1-4.8); LYMPHOCYTES % (AUTO) 3.5 % (21-51); MEAN CORPUSCULAR HEMOGLOBIN 27.7 PG (27.0-31.0); MEAN CORPUSCULAR HGB CONC 33.5 g/dL (33.0-36.5); MEAN CORPUSCULAR VOLUME 82.6 FL (78-98); MEAN PLATELET VOLUME 8.4 FL (7.4-10.4); MONOCYTES # (AUTO) 0.2 X10'3 (0-0.9); MONOCYTES % (AUTO) 2.4 % (2-12); NEUTROPHILS # (AUTO) 8.3 X10'3 (1.8-7.7); PLATELET COUNT 118 X10'3 (140-440); RED BLOOD COUNT 3.96 X10'6 (4.70-6.10); RED CELL DISTRIBUTION WIDTH 17.2 % (11.5-14.5); WHITE BLOOD COUNT 8.8 X10'3 (4.5-11.0)
[2019-06-08 03:21] LABS: PARTIAL THROMBOPLASTIN TIME 32 SECONDS (22-32)
[2019-06-08 03:56] LABS: ALANINE AMINOTRANSFERASE 61 U/L (12-78); ALBUMIN 3.1 G/DL (3.4-5.0); ALBUMIN/GLOBULIN RATIO 1.3 (1.1-1.5); ALKALINE PHOSPHATASE 55 IU/L (46-116); ANION GAP 9 (8-16); ASPARTATE AMINO TRANSFERASE 59 U/L (10-37); BLOOD UREA NITROGEN 31 MG/DL (7-18); BUN/CREATININE RATIO 25.8 (5.4-32.0); CHLORIDE 111 MMOL/L (99-107); GLUCOSE 119 MG/DL (70-104); MAGNESIUM 2.1 MG/DL (1.5-2.4); PHOSPHORUS 4.3 MG/DL (2.3-4.5); POTASSIUM 4.7 MMOL/L (3.5-5.1); SODIUM 144 MMOL/L (135-145); TOTAL CARBON DIOXIDE 23.6 MMOL/L (24-32); TOTAL PROTEIN 5.5 G/DL (6.4-8.2); eGFR 62 ML/MIN
--- NOTE | 2019-06-08 05:48 | NUR ---
0530..Complained of incisional pain 7\10, medicated with morphine, as per md orders, with good effect, no other changes noted.
--- NOTE | 2019-06-08 06:19 | NUR ---
0620..Problems reprioritized. Patient report given, questions answered & plan of care reviewed with Kevin MANNING.
--- NOTE | 2019-06-08 06:22 | NUR ---
Patient in room CICU 2013. I have received report from Josselyn MANNING and had the opportunity to ask questions and assume patient care.
[2019-06-08] MEDS: vancomycin/NS 1 GM ADD-VANTAGE 250 ML IV SCH ×2 (07:49→20:54)
[2019-06-08] MEDS: ceFAZolin 1GM/D5W- ADD-VANTAGE 50 ML IV SCH ×2 (07:49→16:04)
[2019-06-08] MEDS: atorvastatin 10mg tablet PO SCH (07:50)
[2019-06-08] MEDS: docusate sod 100mg capsule PO SCH ×2 (07:50→20:55)
[2019-06-08] MEDS: metoprolol tartrate 25mg tablet PO SCH ×2 (07:50→20:55)
[2019-06-08] MEDS: mupirocin 2% nasal ointment 1gm UD NS SCH ×2 (07:50→20:55)
[2019-06-08] MEDS: gabapentin 300mg capsule PO SCH ×3 (07:50→20:55)
[2019-06-08] MEDS ORDERED: aspirin 325mg tablet, delayed-release (Ecotrin) PO SCH (08:00)
[2019-06-08] MEDS ORDERED: metoprolol tartrate 12.5mg (1/2 tablet) PO SCH (08:00)
[2019-06-08] MEDS: insulin Lispro (HumaLOG) vial - multi-dose SQ SCH ×5 (08:38→22:13)
[2019-06-08] MEDS: insulin regular, human 100 UNIT in normal saline 100ml IV soln 100 ML IV SCH ×2 (14:50)
--- NOTE | 2019-06-08 15:16 | NUR ---
F/u: Pt s/p AVR and seen by RD for written/verbal high protein ed w/ RD contact information provided. Addendum: 06/08/19 at [address] Amended: Links added. Addendum: 06/08/19 at [address] F/u: Pt s/p AVR and seen by RD for written/verbal high protein ed w/ RD contact information provided. Pt agrees to double eggs at breakfast and double veggies w/ meals; dietary notified.
--- NOTE | 2019-06-08 15:23 | NUR ---
PA line d/c'd at 1435, pressure held for 15 min. Minimal oozing noted at site, some ooze noted on dressing 10 minutes after dressing was put in place. After 10 more minutes no further oozing observed. Right A Line d/c'd at 1455, pressure held for 10 minutes and coban applied to site. After 15 minutes no oozing noted at site, will continue to monitor. Pulses and cap refill good on both right and left sides.
[2019-06-08] MEDS ORDERED: dextrose ORAL solution 15 GM/59 ML bottle PO PRN ×2 (15:25)
[2019-06-08] MEDS ORDERED: glucagon, human recombinant 1mg kit SUBCUT PRN (15:25)
[2019-06-08] MEDS ORDERED: dextrose 50%-water 50ml dispensing syringe IV PRN ×2 (15:25)
[2019-06-08 15:28] LABS: PARTIAL THROMBOPLASTIN TIME 29 SECONDS (22-32)
--- NOTE | 2019-06-08 16:14 | NUR ---
New At[facility] placed
[2019-06-08] MEDS: lisinopril 5mg tablet PO SCH (20:55)
--- NOTE | 2019-06-08 21:10 | NUR ---
RN Note -Pt refused bath Pt stated that he doesn't want anything to go wrong tonight, he just wants to get some sleep. Educated pt on importance of bath and that bed bath would be quick and easy and not like to cause any complications. Pt still refused.
[2019-06-08] MEDS: insulin glargine (Lantus) pen - multi-dose SQ SCH (22:10)
[2019-06-09] VITALS (14 sets, daily range): BP systolic 108–127; BP diastolic 63–98
[2019-06-09] MEDS: ceFAZolin 1GM/D5W- ADD-VANTAGE 50 ML IV SCH (00:55)
[2019-06-09] MEDS: insulin Lispro (HumaLOG) vial - multi-dose SQ SCH ×3 (02:33→21:26)
[2019-06-09] MEDS: morphine 4 MG/ML inj SYRINge IV PRN (02:40)
[2019-06-09 03:48] LABS: BASOPHILS % (AUTO) 0.1 % (0-1); EOSINOPHILS % (AUTO) 0 % (0-6); HEMATOCRIT 24.9 % (42.0-52.0); HEMOGLOBIN 8.2 g/dl (14.0-17.9); LYMPHOCYTES # (AUTO) 0.4 X10'3 (1.1-4.8); LYMPHOCYTES % (AUTO) 3.4 % (21-51); MEAN CORPUSCULAR HEMOGLOBIN 27.3 PG (27.0-31.0); MEAN CORPUSCULAR HGB CONC 32.8 g/dL (33.0-36.5); MEAN CORPUSCULAR VOLUME 83.2 FL (78-98); MEAN PLATELET VOLUME 8.6 FL (7.4-10.4); MONOCYTES # (AUTO) 0.5 X10'3 (0-0.9); MONOCYTES % (AUTO) 4.6 % (2-12); NEUTROPHILS # (AUTO) 10.4 X10'3 (1.8-7.7); NEUTROPHILS % (AUTO) 91.9 % (42-75); PLATELET COUNT 146 X10'3 (140-440); RED CELL DISTRIBUTION WIDTH 17.2 % (11.5-14.5); WHITE BLOOD COUNT 11.4 X10'3 (4.5-11.0)
[2019-06-09 04:02] LABS: ALBUMIN 2.8 G/DL (3.4-5.0); ANION GAP 7 (8-16); BLOOD UREA NITROGEN 37 MG/DL (7-18); BUN/CREATININE RATIO 25.7 (5.4-32.0); CALCIUM 8.2 MG/DL (8.5-10.1); CHLORIDE 103 MMOL/L (99-107); CREATININE 1.44 MG/DL (0.60-1.10); GLUCOSE 273 MG/DL (70-104); MAGNESIUM 2.5 MG/DL (1.5-2.4); PHOSPHORUS 3.1 MG/DL (2.3-4.5); SODIUM 135 MMOL/L (135-145); TOTAL CARBON DIOXIDE 24.7 MMOL/L (24-32); eGFR 50 ML/MIN
[2019-06-09] MEDS ORDERED: magnesium 2GM in 50ml NS 50 ML IV PRN (07:10)
[2019-06-09] MEDS ORDERED: potassium Cl 20 mEq SR tablet PO PRN ×2 (07:10)
[2019-06-09] MEDS ORDERED: potassium CL 10mEq/100ml bag 100 ML IV PRN ×2 (07:10)
[2019-06-09] MEDS ORDERED: magnesium Cl slow-release 64mg tablet PO PRN (07:10)
[2019-06-09] MEDS ORDERED: magnesium 4gm in 100ml NS 100 ML IV PRN (07:10)
[2019-06-09] MEDS ORDERED: HYDROcodone/acetaminophen 5mg/325mg tablet PO PRN (07:10)
[2019-06-09] MEDS: gabapentin 300mg capsule PO SCH (07:44)
[2019-06-09] MEDS: docusate sod 100mg capsule PO SCH ×2 (07:45→19:44)
[2019-06-09] MEDS: metoprolol tartrate 25mg tablet PO SCH ×2 (07:45→19:43)
[2019-06-09] MEDS: aspirin 81mg tablet.DR PO SCH (07:45)
[2019-06-09] MEDS: pantoprazole 40mg Tablet.DR PO SCH (07:45)
[2019-06-09] MEDS: atorvastatin 10mg tablet PO SCH (07:45)
[2019-06-09] MEDS: magnesium Cl slow-release 64mg tablet PO SCH ×2 (08:00→19:46)
[2019-06-09] MEDS: potassium Cl 20 mEq SR tablet PO SCH ×2 (08:00→19:45)
[2019-06-09] MEDS: K and/or MAG REPLACEMENT MC SCH (08:00)
[2019-06-09] MEDS: mupirocin 2% nasal ointment 1gm UD NS SCH (08:15)
--- NOTE | 2019-06-09 09:21 | NUR ---
Called report to NIGEL Gavin. Pt transferred to ACCE unit via wheelchair with all belongings. Pt alert, oriented and stable for transfer
[2019-06-09] MEDS ORDERED: furosemide 40mg/4ml inj IV ONE (13:20)
--- NOTE | 2019-06-09 14:07 | NUR ---
PHARMACY PAGED TO HAVE 1/2 TAB FLAVIA SENT UP ORDERED
[2019-06-09] MEDS ORDERED: METO25TA6 PO (14:11)
[2019-06-09] MEDS ORDERED: ASPI-1071 PO (14:11)
[2019-06-09] MEDS ORDERED: HYDR-4383 PO (14:11)
[2019-06-09] MEDS ORDERED: DOCU100C40 PO (14:11)
[2019-06-09] MEDS ORDERED: ATOR10TA PO (14:11)
[2019-06-09] MEDS ORDERED: LISI-642 PO (14:11)
[2019-06-09] MEDS: HYDROcodone/acetaminophen 5mg/325mg tablet PO PRN ×2 (15:09→20:17)
--- NOTE | 2019-06-09 18:00 | NUR ---
Patient in room MED 307. I have received report from EKATERINA MANNING and had the opportunity to ask questions and assume patient care.
--- NOTE | 2019-06-09 18:23 | NUR ---
Problems reprioritized. Patient report given, questions answered & plan of care reviewed with NIGEL Chen.
[2019-06-09] MEDS: lisinopril 5mg tablet PO SCH (19:42)
--- NOTE | 2019-06-09 19:50 | NUR ---
paged pharmacy for 1/2 ulmer for patient
[2019-06-09] MEDS: insulin glargine (Lantus) pen - multi-dose SQ SCH (21:24)
[2019-06-10 02:00] VITALS: BP 114/79
[2019-06-10 06:00] VITALS: BP 130/77
--- NOTE | 2019-06-10 06:19 | NUR ---
gave report to Lyric. All questions were answered.
[2019-06-10 06:44] LABS: BASOPHILS % (AUTO) 0.1 % (0-1); EOSINOPHILS % (AUTO) 0 % (0-6); HEMATOCRIT 22.3 % (42.0-52.0); HEMOGLOBIN 7.6 g/dl (14.0-17.9); LYMPHOCYTES # (AUTO) 0.3 X10'3 (1.1-4.8); LYMPHOCYTES % (AUTO) 3.6 % (21-51); MEAN CORPUSCULAR HEMOGLOBIN 28.2 PG (27.0-31.0); MEAN CORPUSCULAR HGB CONC 34.1 g/dL (33.0-36.5); MEAN CORPUSCULAR VOLUME 82.5 FL (78-98); MEAN PLATELET VOLUME 8.3 FL (7.4-10.4); MONOCYTES # (AUTO) 0.4 X10'3 (0-0.9); MONOCYTES % (AUTO) 6.3 % (2-12); NEUTROPHILS # (AUTO) 6.2 X10'3 (1.8-7.7); PLATELET COUNT 125 X10'3 (140-440); RED BLOOD COUNT 2.71 X10'6 (4.70-6.10); RED CELL DISTRIBUTION WIDTH 17.5 % (11.5-14.5); WHITE BLOOD COUNT 6.9 X10'3 (4.5-11.0)
[2019-06-10 06:49] LABS: ALBUMIN 2.7 G/DL (3.4-5.0); ANION GAP 7 (8-16); BLOOD UREA NITROGEN 31 MG/DL (7-18); BUN/CREATININE RATIO 29.5 (5.4-32.0); CALCIUM 7.9 MG/DL (8.5-10.1); CHLORIDE 101 MMOL/L (99-107); CREATININE 1.05 MG/DL (0.60-1.10); GLUCOSE 257 MG/DL (70-104); MAGNESIUM 1.9 MG/DL (1.5-2.4); POTASSIUM 4.4 MMOL/L (3.5-5.1); SODIUM 136 MMOL/L (135-145); TOTAL CARBON DIOXIDE 27.6 MMOL/L (24-32); eGFR 72 ML/MIN
--- NOTE | 2019-06-10 07:07 | NUR ---
Patient in room MED 307. I have received report from NIGEL Chen and had the opportunity to ask questions and assume patient care.
[2019-06-10] MEDS: K and/or MAG REPLACEMENT MC SCH (08:00)
[2019-06-10] MEDS: pantoprazole 40mg Tablet.DR PO SCH (08:30)
[2019-06-10] MEDS: aspirin 81mg tablet.DR PO SCH (08:30)
[2019-06-10] MEDS: atorvastatin 10mg tablet PO SCH (08:32)
[2019-06-10] MEDS: docusate sod 100mg capsule PO SCH ×2 (08:32→20:08)
[2019-06-10] MEDS: magnesium Cl slow-release 64mg tablet PO SCH ×2 (08:32→20:07)
[2019-06-10] MEDS: potassium Cl 20 mEq SR tablet PO SCH ×2 (08:32→20:07)
[2019-06-10] MEDS: CefTRIAXone 2gm/D5W 50ml 50 ML IV SCH (08:33)
[2019-06-10] MEDS: metoprolol tartrate 25mg tablet PO SCH ×2 (08:33→20:11)
[2019-06-10] MEDS: HYDROcodone/acetaminophen 5mg/325mg tablet PO PRN (08:37)
[2019-06-10] MEDS: insulin Lispro (HumaLOG) vial - multi-dose SQ SCH ×3 (09:00→20:21)
[2019-06-10 11:00] VITALS: BP 121/72
[2019-06-10 15:00] VITALS: BP 129/82
--- NOTE | 2019-06-10 18:00 | NUR ---
Patient in room MED 307. I have received report from EKATERINA MANNING and had the opportunity to ask questions and assume patient care.
--- NOTE | 2019-06-10 18:20 | NUR ---
RECEIVED REPORT AND ASSUMING CARE WITH ARA HINOJOSA RN. PATIENT PLACED ON TELE TO GO TO BATHROOM.
--- NOTE | 2019-06-10 18:27 | NUR ---
Problems reprioritized. Patient report given, questions answered & plan of care reviewed with NIGEL Villalta.
[2019-06-10 18:30] VITALS: BP 138/87
[2019-06-10] MEDS ORDERED: potassium Cl 20 mEq SR tablet PO PRN (19:05)
[2019-06-10] MEDS ORDERED: potassium CL 10mEq/100ml bag 100 ML IV PRN (19:05)
[2019-06-10] MEDS ORDERED: magnesium 2GM in 50ml NS 50 ML IV PRN (19:05)
[2019-06-10] MEDS ORDERED: magnesium 4gm in 100ml NS 100 ML IV PRN (19:05)
[2019-06-10] MEDS: lactobacillus rhamnosus 10,000 MMU CELLS/CAPSULE PO SCH (20:08)
[2019-06-10] MEDS: lisinopril 5mg tablet PO SCH (20:11)
[2019-06-10 22:00] VITALS: BP 133/85
[2019-06-10] MEDS: insulin glargine (Lantus) pen - multi-dose SQ SCH (22:43)
[2019-06-11 02:00] VITALS: BP 115/69
[2019-06-11 02:33] LABS: ALBUMIN 2.7 G/DL (3.4-5.0); ANION GAP 3 (8-16); BLOOD UREA NITROGEN 20 MG/DL (7-18); BUN/CREATININE RATIO 27.4 (5.4-32.0); CALCIUM 8.4 MG/DL (8.5-10.1); CHLORIDE 102 MMOL/L (99-107); CREATININE 0.73 MG/DL (0.60-1.10); GLUCOSE 143 MG/DL (70-104); MAGNESIUM 2.2 MG/DL (1.5-2.4); SODIUM 135 MMOL/L (135-145); TOTAL CARBON DIOXIDE 30.3 MMOL/L (24-32); eGFR > 90 ML/MIN
[2019-06-11 06:00] VITALS: BP_SYST 115; BP_SYST 131; BP_DIAS 69; BP_DIAS 85
--- NOTE | 2019-06-11 06:00 | NUR ---
orientee documentation: I have reviewed and agree with all interventions, assessments performed and documented by Ambar MANNING.
[2019-06-11 06:01] LABS: BASOPHILS % (AUTO) 0.3 % (0-1); EOSINOPHILS # (AUTO) 0.1 X10'3 (0-0.9); EOSINOPHILS % (AUTO) 2.3 % (0-6); HEMATOCRIT 26.7 % (42.0-52.0); LYMPHOCYTES # (AUTO) 0.4 X10'3 (1.1-4.8); LYMPHOCYTES % (AUTO) 8.8 % (21-51); MEAN CORPUSCULAR HEMOGLOBIN 27.7 PG (27.0-31.0); MEAN CORPUSCULAR HGB CONC 33.5 g/dL (33.0-36.5); MEAN CORPUSCULAR VOLUME 82.6 FL (78-98); MEAN PLATELET VOLUME 7.9 FL (7.4-10.4); MONOCYTES # (AUTO) 0.3 X10'3 (0-0.9); MONOCYTES % (AUTO) 6.1 % (2-12); NEUTROPHILS # (AUTO) 3.7 X10'3 (1.8-7.7); NEUTROPHILS % (AUTO) 82.5 % (42-75); PLATELET COUNT 116 X10'3 (140-440); RED BLOOD COUNT 3.24 X10'6 (4.70-6.10); RED CELL DISTRIBUTION WIDTH 17.6 % (11.5-14.5); WHITE BLOOD COUNT 4.5 X10'3 (4.5-11.0)
--- NOTE | 2019-06-11 06:02 | NUR ---
Patient in room MED 314. I have received report from NIGEL Villalta and had the opportunity to ask questions and assume patient care.
--- NOTE | 2019-06-11 06:33 | NUR ---
Problems reprioritized. Patient report given, questions answered & plan of care reviewed with Sandy MANNING.
[2019-06-11] MEDS: pantoprazole 40mg Tablet.DR PO SCH (07:49)
[2019-06-11] MEDS: metoprolol tartrate 25mg tablet PO SCH ×2 (07:52→20:14)
[2019-06-11] MEDS: aspirin 81mg tablet.DR PO SCH (07:52)
[2019-06-11] MEDS: magnesium Cl slow-release 64mg tablet PO SCH ×2 (07:52→20:11)
[2019-06-11] MEDS: atorvastatin 10mg tablet PO SCH (07:53)
[2019-06-11] MEDS: potassium Cl 20 mEq SR tablet PO SCH ×2 (07:53→20:14)
[2019-06-11] MEDS: docusate sod 100mg capsule PO SCH ×2 (07:54→20:00)
[2019-06-11] MEDS: CefTRIAXone 2gm/D5W 50ml 50 ML IV SCH (07:54)
[2019-06-11] MEDS: lactobacillus rhamnosus 10,000 MMU CELLS/CAPSULE PO SCH ×2 (07:54→20:00)
[2019-06-11] MEDS: K and/or MAG REPLACEMENT MC SCH (08:00)
[2019-06-11] MEDS: insulin Lispro (HumaLOG) vial - multi-dose SQ SCH ×3 (09:45→18:25)
[2019-06-11] MEDS: HYDROcodone/acetaminophen 5mg/325mg tablet PO PRN ×3 (10:35→20:11)
[2019-06-11] MEDS: ondansetron/PF 4mg/2ml inj IV PRN ×2 (10:35→20:04)
[2019-06-11 11:00] VITALS: BP 122/82
--- NOTE | 2019-06-11 12:11 | NUR ---
patient refusing to walk around unit RN offered twice so far today to walk with patient around the unit for usual 200+ feet walk. patient refuses, says "I only want to walk around my room".
[2019-06-11 15:00] VITALS: BP 122/82
--- NOTE | 2019-06-11 16:22 | NUR ---
Patient's plan upon discharge is to stay with a friend, Elgin. Elgin is willing to assist patient with care and transportation.
[2019-06-11 18:00] VITALS: BP 123/80
--- NOTE | 2019-06-11 18:05 | NUR ---
Patient in room MED 307. I have received report from NIGEL Gavin and had the opportunity to ask questions and assume patient care.
--- NOTE | 2019-06-11 18:28 | NUR ---
Problems reprioritized. Patient report given, questions answered & plan of care reviewed with NIGEL Rodriguez.
--- NOTE | 2019-06-11 19:30 | NUR ---
Asked patient if he wanted to walk around the unit. He said maybe he would later.
[2019-06-11 22:00] VITALS: BP 134/89
[2019-06-11] MEDS: insulin glargine (Lantus) pen - multi-dose SQ SCH (22:24)
[2019-06-11] MEDS: lisinopril 5mg tablet PO SCH (22:26)
[2019-06-12 02:00] VITALS: BP 122/81
[2019-06-12] MEDS: ondansetron/PF 4mg/2ml inj IV PRN ×2 (02:51→09:26)
[2019-06-12] MEDS: HYDROcodone/acetaminophen 5mg/325mg tablet PO PRN ×2 (02:52→09:26)
[2019-06-12 06:00] VITALS: BP 97/67
--- NOTE | 2019-06-12 06:05 | NUR ---
Problems reprioritized. Patient report given, questions answered & plan of care reviewed with NIGEL Steele.
[2019-06-12] MEDS: pantoprazole 40mg Tablet.DR PO SCH (07:41)
[2019-06-12] MEDS: CefTRIAXone 2gm/D5W 50ml 50 ML IV SCH (07:42)
[2019-06-12] MEDS: docusate sod 100mg capsule PO SCH (07:43)
[2019-06-12] MEDS: potassium Cl 20 mEq SR tablet PO SCH (07:43)
[2019-06-12] MEDS: aspirin 81mg tablet.DR PO SCH (07:43)
[2019-06-12] MEDS: magnesium Cl slow-release 64mg tablet PO SCH (07:43)
[2019-06-12] MEDS: metoprolol tartrate 25mg tablet PO SCH (07:46)
[2019-06-12] MEDS: K and/or MAG REPLACEMENT MC SCH (08:00)
[2019-06-12] MEDS: lactobacillus rhamnosus 10,000 MMU CELLS/CAPSULE PO SCH (08:00)
[2019-06-12 08:14] LABS: BASOPHILS % (AUTO) 0.2 % (0-1); EOSINOPHILS # (AUTO) 0.1 X10'3 (0-0.9); EOSINOPHILS % (AUTO) 1.5 % (0-6); HEMATOCRIT 28.4 % (42.0-52.0); HEMOGLOBIN 9.5 g/dl (14.0-17.9); LYMPHOCYTES # (AUTO) 0.6 X10'3 (1.1-4.8); LYMPHOCYTES % (AUTO) 9.1 % (21-51); MEAN CORPUSCULAR HEMOGLOBIN 27.7 PG (27.0-31.0); MEAN CORPUSCULAR HGB CONC 33.5 g/dL (33.0-36.5); MEAN CORPUSCULAR VOLUME 82.5 FL (78-98); MEAN PLATELET VOLUME 7.9 FL (7.4-10.4); MONOCYTES # (AUTO) 0.5 X10'3 (0-0.9); MONOCYTES % (AUTO) 7.8 % (2-12); NEUTROPHILS # (AUTO) 5.4 X10'3 (1.8-7.7); NEUTROPHILS % (AUTO) 81.4 % (42-75); PLATELET COUNT 146 X10'3 (140-440); RED BLOOD COUNT 3.45 X10'6 (4.70-6.10); RED CELL DISTRIBUTION WIDTH 17.5 % (11.5-14.5); WHITE BLOOD COUNT 6.6 X10'3 (4.5-11.0)
[2019-06-12 08:16] LABS: ALBUMIN 2.9 G/DL (3.4-5.0); ANION GAP 5 (8-16); BLOOD UREA NITROGEN 14 MG/DL (7-18); BUN/CREATININE RATIO 17.3 (5.4-32.0); CALCIUM 8.2 MG/DL (8.5-10.1); CHLORIDE 99 MMOL/L (99-107); CREATININE 0.81 MG/DL (0.60-1.10); GLUCOSE 153 MG/DL (70-104); MAGNESIUM 1.9 MG/DL (1.5-2.4); POTASSIUM 4.7 MMOL/L (3.5-5.1); SODIUM 132 MMOL/L (135-145); TOTAL CARBON DIOXIDE 27.7 MMOL/L (24-32); eGFR > 90 ML/MIN
[2019-06-12] MEDS: insulin Lispro (HumaLOG) vial - multi-dose SQ SCH ×2 (09:16→13:28)
[2019-06-12 11:00] VITALS: BP 101/73
--- NOTE | 2019-06-12 14:47 | NUR ---
Reassessment: Pt PO 100% meals meeting needs. LBM 06/11. No nutrition concerns at this time. Will continue to monitor. Rec: 1. continue heart healthy diet 2. double eggs and veggies w/ meals 3. wt per rx Addendum: 06/12/19 at [address] Amended: Links added.
--- NOTE | 2019-06-12 16:50 | NUR ---
Patient discharge to his family/friend, El[place]. All instructions gone over with patient, IV d/c (catheter intact. Patient is alert and oriented and in stable condition. Patient states all questions answered to his satisfaction. Patient's prescriptions were faxed to [facility] [address] Patient refused Casey prescription at this time. Patient was taken by w/c to private vehicle. All patient personal belongings were accounted for and room checked.
[2019-06-12] MEDS ORDERED: atorvastatin 10mg tablet PO SCH (21:00)
== END 2019-06-12 16:50 | disposition home health service (06) | DRG 216 ==
LOC: ER 15:21 → PCU 3S 18:30 → CMPBEDREQ 06-05 17:58 → PCU 3S 06-05 20:23 → MED 3N 06-06 00:40 → CICU 2S 06-07 12:51 → MED 3N 06-09 09:15
PROVIDERS: ADMIT Family Medicine; ATTEND Thoracic Surgery (Cardiothoracic Vascular Surgery)
PROC: B32T1ZZ Computerized Tomography (CT Scan) of Left Pulmonary Artery using Low Osmolar Contrast (ICD-10-PCS; 2019-06-02)
PROC: B3201ZZ Computerized Tomography (CT Scan) of Thoracic Aorta using Low Osmolar Contrast (ICD-10-PCS; 2019-06-02)
PROC: B32S1ZZ Computerized Tomography (CT Scan) of Right Pulmonary Artery using Low Osmolar Contrast (ICD-10-PCS; 2019-06-02)
PROC: 4A023N6 Measurement of Cardiac Sampling and Pressure, Right Heart, Percutaneous Approach (ICD-10-PCS; 2019-06-05)
PROC: B2111ZZ Fluoroscopy of Multiple Coronary Arteries using Low Osmolar Contrast (ICD-10-PCS; 2019-06-05)
PROC: B3101ZZ Fluoroscopy of Thoracic Aorta using Low Osmolar Contrast (ICD-10-PCS; 2019-06-05)
PROC: B41F1ZZ Fluoroscopy of Right Lower Extremity Arteries using Low Osmolar Contrast (ICD-10-PCS; 2019-06-05)
PROC: 02100Z9 Bypass Coronary Artery, One Artery from Left Internal Mammary, Open Approach (ICD-10-PCS; 2019-06-07)
PROC: 02HP32Z Insertion of Monitoring Device into Pulmonary Trunk, Percutaneous Approach (ICD-10-PCS; 2019-06-07)
PROC: 4A133B3 Monitoring of Arterial Pressure, Pulmonary, Percutaneous Approach (ICD-10-PCS; 2019-06-07)
PROC: 4A1239Z Monitoring of Cardiac Output, Percutaneous Approach (ICD-10-PCS; 2019-06-07)
PROC: 02HV33Z Insertion of Infusion Device into Superior Vena Cava, Percutaneous Approach (ICD-10-PCS; 2019-06-07)
PROC: B548ZZA Ultrasonography of Superior Vena Cava, Guidance (ICD-10-PCS; 2019-06-07)
PROC: 5A1221Z Performance of Cardiac Output, Continuous (ICD-10-PCS; 2019-06-07)
PROC: B24BZZ4 Ultrasonography of Heart with Aorta, Transesophageal (ICD-10-PCS; 2019-06-07)
PROC: 02RF08Z Replacement of Aortic Valve with Zooplastic Tissue, Open Approach (ICD-10-PCS; principal; 2019-06-07 08:05)
PROC: 30233K1 Transfusion of Nonautologous Frozen Plasma into Peripheral Vein, Percutaneous Approach (ICD-10-PCS; 2019-06-08)
DX: I08.0 Rheumatic disorders of both mitral and aortic valves (principal); I33.0 Acute and subacute infective endocarditis; I50.33 Acute on chronic diastolic (congestive) heart failure; I31.3 Pericardial effusion (noninflammatory); I13.0 Hypertensive heart and chronic kidney disease with heart failure and stage 1 through stage 4 chronic kidney disease, or unspecified chronic kidney disease; D62 Acute posthemorrhagic anemia; N18.9 Chronic kidney disease, unspecified; D72.829 Elevated white blood cell count, unspecified; I25.10 Atherosclerotic heart disease of native coronary artery without angina pectoris; X58.XXXA Exposure to other specified factors, initial encounter; I50.82 Biventricular heart failure; R00.0 Tachycardia, unspecified; K21.9 Gastro-esophageal reflux disease without esophagitis; R79.1 Abnormal coagulation profile; S02.5XXA Fracture of tooth (traumatic), initial encounter for closed fracture; Z86.73 Personal history of transient ischemic attack (TIA), and cerebral infarction without residual deficits; Z87.01 Personal history of pneumonia (recurrent); Z88.5 Allergy status to narcotic agent; Y93.89 Activity, other specified; Y92.89 Other specified places as the place of occurrence of the external cause; Y99.8 Other external cause status
CPT/HCPCS: 0232T; 36569; 93312; 93325; 93456; 96374; 99285; Z7506; Z7508; 36415; 36600; 70544; 70547; 70551; 71045; 71046; 71275; 74176; 76937; 80048; 80053; 80202; 82330; 82435; 82803; 82947; 82948; 83036; 83605; 83735; 83880; 84100; 84132; 84145; 84295; 84484; 85014; 85018; 85025; 85347; 85384; 85610; 85730; 86622; 86885; 86900; 86901; 86920; 87040; 87070; 87075; 87081; 87102; 92508; 92616; 93005; 93880; 93971; 94002; 94010; 94667; 94668; 94760; 97110; 97116; 97161; 97164; 97530; 99152; 99153; A4618; A4620; A6258; A6402; A6449; A7000; A7048; C1713; C1751; C1760; C1769; C9113; G0378; J0131; J0171; J0690; J0696; J0780; J1265; J1644; J1815; J1940; J2001; J2060; J2150; J2250; J2270; J2370; J2405; J2440; J2720; J2795; J2930; J3010; J3370; J3475; J3480; J3490; J7030; J7040; J7050; J7120; P9045; P9047; P9059; Q0163; Q9967